=== PATIENT | male | born 1970 | race American Indian/Alaskan Native ===

== ENCOUNTER 2019-04-23 20:54 | Emergency (ER) | payer MEDICAID ==
[~2019-04-23] VITALS: Ht 170.2 cm; Wt 67.6 kg
[2019-04-23 21:08] VITALS: Ht 170.2 cm; Wt 67.6 kg
[2019-04-23 21:58] LABS: BASOPHIL % 0.5 % (0-2); PLATELET COUNT 302 x10^3mcL (130-400)
[2019-04-23 22:07] LABS: CALCIUM 9.6 mg/dL (8.5-10.1); CARBON DIOXIDE 33.2 mmol/L (21-32); CHLORIDE SERUM 99 mmol/L (98-107); CREATININE SERUM 0.8 mg/dL (0.7-1.3); GFR1 > 60 mL/min; GLUCOSE SERUM 136 mg/dL (74-106); POTASSIUM SERUM 3.2 mmol/L (3.5-5.1); SODIUM SERUM 141 mmol/L (136-145)
[2019-04-23 22:11] LABS: ALBUMIN 4.4 g/dL (3.4-5.0); ALKALINE PHOSPHATASE 88 U/L (46-116); ALT/SGPT 19 U/L (16-63); AST/SGOT 10 U/L (15-37); BILIRUBIN TOTAL 0.49 mg/dL (0.20-1.00); LIPASE 74 IU/L (73-393)
[2019-04-23 22:14] LABS: TOTAL PROTEIN, SERUM 8.4 g/dL (6.4-8.2)
[2019-04-24 01:56] VITALS: BP 118/77
== END 2019-04-24 01:56 | disposition home or self-care (01) ==
LOC: ED 20:54
DX: R11.2 Nausea with vomiting, unspecified (principal); K21.9 Gastro-esophageal reflux disease without esophagitis; Z98.890 Other specified postprocedural states; Z88.6 Allergy status to analgesic agent
CPT/HCPCS: G0480; J2405; J7030; Q0162

== ENCOUNTER 2019-04-28 12:29 | Emergency (ER) | payer MEDICAID ==
[~2019-04-28] VITALS: Ht 170.2 cm; Wt 70.8 kg
[2019-04-28 12:38] VITALS: Ht 170.2 cm; Wt 70.8 kg
[2019-04-28 13:28] LABS: BASOPHIL % 0.6 % (0-2); PLATELET COUNT 226 x10^3mcL (130-400)
[2019-04-28 13:36] LABS: RED CELL DISTRIBUTION WIDTH 16.1 % (11.5-14.5)
[2019-04-28 13:37] LABS: CALCIUM 8.5 mg/dL (8.5-10.1); CARBON DIOXIDE 29.8 mmol/L (21-32); CHLORIDE SERUM 107 mmol/L (98-107); CREATININE SERUM 0.9 mg/dL (0.7-1.3); GFR1 > 60 mL/min; GLUCOSE SERUM 101 mg/dL (74-106); POTASSIUM SERUM 3.8 mmol/L (3.5-5.1); SODIUM SERUM 144 mmol/L (136-145)
[2019-04-28 13:41] LABS: ALBUMIN 4.1 g/dL (3.4-5.0); ALKALINE PHOSPHATASE 73 U/L (46-116); ALT/SGPT 23 U/L (16-63); AST/SGOT 20 U/L (15-37); BILIRUBIN TOTAL 0.5 mg/dL (0.20-1.00); LIPASE 184 IU/L (73-393); TOTAL PROTEIN, SERUM 7.4 g/dL (6.4-8.2)
[2019-04-28 20:00] VITALS: BP 126/84
== END 2019-04-28 20:00 | disposition home or self-care (01) ==
LOC: ED 12:29
PROVIDERS: Emergency Medicine
DX: K57.30 Diverticulosis of large intestine without perforation or abscess without bleeding (principal); K21.9 Gastro-esophageal reflux disease without esophagitis; M19.90 Unspecified osteoarthritis, unspecified site; Z88.6 Allergy status to analgesic agent
CPT/HCPCS: C9113; J2405; J2765; J7030

== ENCOUNTER 2019-05-03 21:24 | Inpatient (IN) | payer MEDICAID, BC ==
[~2019-05-03] VITALS: Ht 170.2 cm; Wt 66.7 kg
[2019-05-03 21:36] VITALS: Ht 170.2 cm; Wt 66.7 kg
[2019-05-03 23:01] LABS: BASOPHIL % 1.1 % (0-2); PLATELET COUNT 228 x10^3mcL (130-400); RED CELL DISTRIBUTION WIDTH 15.4 % (11.5-14.5)
[2019-05-03 23:08] LABS: CALCIUM 8.5 mg/dL (8.5-10.1); CARBON DIOXIDE 26.2 mmol/L (21-32); CHLORIDE SERUM 105 mmol/L (98-107); CREATININE SERUM 0.8 mg/dL (0.7-1.3); GFR1 > 60 mL/min; GLUCOSE SERUM 91 mg/dL (74-106); POTASSIUM SERUM 3.8 mmol/L (3.5-5.1); SODIUM SERUM 141 mmol/L (136-145)
[2019-05-03 23:12] LABS: ALBUMIN 4.1 g/dL (3.4-5.0); ALKALINE PHOSPHATASE 67 U/L (46-116); ALT/SGPT 18 U/L (16-63); AST/SGOT 16 U/L (15-37); BILIRUBIN TOTAL 0.7 mg/dL (0.20-1.00); LIPASE 157 IU/L (73-393); TOTAL PROTEIN, SERUM 7.3 g/dL (6.4-8.2)
--- NOTE | 2019-05-03 23:31 | NUR ---
PATIENT SEEN WITH COMPLAINT OF NAUSEA/VOMITIG X 1 WEEK. SEEN BY MD. SALINE LOCK INSERTED. PATIENT MEDICATED.
--- NOTE | 2019-05-04 00:38 | NUR ---
PT GIVEN URINAL TO PROVIDE URINE SAMPLE AT THIS TIME.
--- NOTE | 2019-05-04 00:50 | NUR ---
PATIENT IS RESTING. NO VOMITING SEEN SINCE IN THE ED. REPORT WAS GIVEN TO YAMILET. PATIENT TRANSPORTED TO ROOM 203
--- NOTE | 2019-05-04 02:00 | NUR ---
PATIENT TRANSPORTED TO THE ROOM. ( TRANSFER DELAY DUE TO EMERGENCY).
--- NOTE | 2019-05-04 02:07 | NUR ---
PATIENT ARRIVED FROM ED VIA WHEELCHAIR ACCOMPANIED BY ED STAFF. PATIENT IS AMBULATORY WITH AN EVEN AND STEADY GAIT. A/OX4. ABLE TO MAKE NEEDS KNOWN. BREATHING EVEN AND UNLABORED ON ROOM AIR. NO SOB OR RESP DISTRESS NOTED. MED SURG PATIENT. DENIES CHEST PAIN/PRESSURE. NO C/O PAIN AT THIS TIME. DENIES N/V, CULVER, AND DIZZINESS. IV TO THE RAC INFUSING NS WELL. PATENT AND INTACT. NO REDNESS OR SWELLING NOTED. RADIAL AND PEDAL PULSES ARE PALPABLE BILATERALLY. NO EDEMA NOTED. PATIENT REPORTS POOR APPETITE PRIOR TO ADMISSION. NEEDS URINE FOR UA AND PATIENT IS AWARE. URINAL AT BEDSIDE. PATIENT DENIES CIGARETTE SMOKING BUT REPORTS CHRONIC USE OF MARIJUANA. PATIENT STATES HE QUIT DRINKING. ORIENTED PATIENT TO RROM, BED CONTROLS, AND CALL LIGHT SYSTEM. COMFORT AND SAFETY MEASURES IN PLACE. BED IS LOCKED AND IN THE LOWEST POSITION. SIDE RAILS UP X2. CALL LIGHT IS WITHIN REACH. PATIENT IS NPO AND IS AWARE. WILL CONTINUE TO MONITOR.
--- NOTE | 2019-05-04 02:07 | NUR ---
PATIENT ARRIVED FROM ED VIA WHEELCHAIR ACCOMPANIED BY ED STAFF. PATIENT IS AMBULATORY WITH AN EVEN AND STEADY GAIT. A/OX4. ABLE TO MAKE NEEDS KNOWN. BREATHING EVEN AND UNLABORED ON ROOM AIR. NO SOB OR RESP DISTRESS NOTED. MED SURG PATIENT. DENIES CHEST PAIN/PRESSURE. NO C/O PAIN AT THIS TIME. DENIES N/V, CULVER, AND DIZZINESS. IV TO THE RAC INFUSING NS WELL. PATENT AND INTACT. NO REDNESS OR SWELLING NOTED. RADIAL AND PEDAL PULSES ARE PALPABLE BILATERALLY. NO EDEMA NOTED. PATIENT REPORTS POOR APPETITE POOR TO ADMISSION. NEEDS URINE FOR UA AND PATIENT IS AWARE. URINAL AT BEDSIDE. PATIENT DENIES CIGARETTE SMOKING BUT REPORTS CHRONIC USE OF MARIJUANA. PATIENT STATES HE QUIT DRINKING. ORIENTED PATIENT TO RROM, BED CONTROLS, AND CALL LIGHT SYSTEM. COMFORT AND SAFETY MEASURES IN PLACE. BED IS LOCKED AND IN THE LOWEST POSITION. SIDE RAILS UP X2. CALL LIGHT IS WITHIN REACH. PATIENT IS NPO AND IS AWARE. WILL CONTINUE TO MONITOR.
[2019-05-04 02:29] VITALS: BP 111/57
[2019-05-04 04:54] LABS: UA SPECIFIC GRAVITY 1.025 (1.005-1.035); microscopic required? YES; urine erythrocyte NEGATIVE (NEGATIVE)
[2019-05-04 05:11] LABS: AMPHETAMINE QUAL UR NONE DETECTED (See below)
[2019-05-04 05:44] VITALS: BP 100/70
[2019-05-04 05:56] LABS: BASOPHIL % 1.4 % (0-2); PLATELET COUNT 220 x10^3mcL (130-400)
--- NOTE | 2019-05-04 06:08 | NUR ---
AWAKE THROUGH MOST OF THE NIGHT. AMBIEN AND BENEDRYL WAS NOT EFFECTIVE. NO DISTRESS NOTED. BREATHING EVEN AND UNLABORED ON ROOM AIR. NO SOB OR RESP DISTRESS NOTED. NO C/O PAIN, ONLY ABD DISCOMFORT. IV TO THE RAC INFUSING WELL. PATENT AND INTACT. NO REDNESS OR SWELLING NOTED. ABD INCISION X3 W/ DERMABOND. NO BM. SAFETY MEASURES IN PLACE. CALL LIGHT IN PLACE. WILL ENDORSE CARE TO DAY SHIFT RN.
--- NOTE | 2019-05-04 06:14 | NUR ---
RESTED IN LONG INTERVALS THROUGHOUT THE NIGHT. NO DISTRESS NOTED. BREATHING EVEN AND UNLABORED ON ROOM AIR. NO SOB NOTED. DENIES CHEST PAIN. NO C/O PAIN THROUGHOUT THE NIGHT. DENIES NAUSEA. IV TO THE RAC INFUSING WELL. PATENT AND INTACT. NO REDNESS OR SWELLING NOTED. NPO. SAFETY MEASURES IN PLACE. CALL LIGHT IS WTIHIN REACH. WILL ENDORSE CARE TO DAY SHIFT RN.
[2019-05-04 06:18] LABS: CALCIUM 8.2 mg/dL (8.5-10.1); CARBON DIOXIDE 26.1 mmol/L (21-32); CHLORIDE SERUM 106 mmol/L (98-107); CREATININE SERUM 0.6 mg/dL (0.7-1.3); GFR1 > 60 mL/min; GLUCOSE SERUM 86 mg/dL (74-106); POTASSIUM SERUM 3.6 mmol/L (3.5-5.1); SODIUM SERUM 140 mmol/L (136-145)
[2019-05-04 06:55] LABS: RED CELL DISTRIBUTION WIDTH 15.8 % (11.5-14.5)
--- NOTE | 2019-05-04 07:00 | NUR ---
RECIEVED PT RESTING IN BED WITH NO C/O PAIN OR DISTRESS. A/O X4 WITH NO C/O CULVER OR DISSINESS. PT REPORTS NO ABD PAIN OR VOMITING AT THIS TIME. NS RUNNING IN RAC 20G, INTACT AND PATENT WITH NO REDNESS OR INFLAMMATION NOTED. SAFETY PRECAUTIONS IN PLACE, CALL LIGHT WITHIN REACH, WILL MONITOR.
[2019-05-04 08:30] VITALS: BP 103/75
--- NOTE | 2019-05-04 13:16 | NUR ---
PT DIEST CHANGED TO REGULAR TO SEE IF HE CAN TOLERATE AND HE WAS NOT ABLE TO TOLERATE EATING REGULAR DIET. PT REPORTS VOMITING AFTER EATING LUNCH, DR MAXWELL NOTIFIED. WILL MONITOR PT, STABLE AT THIS TIME.
--- NOTE | 2019-05-04 15:16 | NUR ---
ZOFRAN GIVEN FOR C/O N/V, WILL REASSESS.
[2019-05-04 16:50] VITALS: BP 101/71
--- NOTE | 2019-05-04 18:45 | NUR ---
PT STABLE, RESTING AT THIS TIME WITH NO C/O PAIN OR DISTRESS. TOLERATED ALL CARES WELL. VS WNL. NO SOB NOTED. IV INTACT AND PATENT WITH NO REDNESS OR INFLAMMATION NOTED. NS RUNNING AT 100ML/HR. SAFETY PRECAUTIONS IN PLACE, CALL LIGHT WITHIN REACH, WILL ENDORSE TO NIGHT NURSE.
--- NOTE | 2019-05-04 19:25 | NUR ---
RECEIVED PT RESTING IN BEDSIDE CHAIR, NO ACUTE DISTRESS NOTED. PT AOX4, DENIES CULVER/DIZZINESS, MEDSURG PT, DENIES CP. PULSES PALPABLE BILAT, DENIES NUMBNESS/TINGLING IN FEET. RESP EVEN AND UNLABORED ON RA, DENIES SOB. PT REPORTS LESSING NAUSEA, DID NOT VOMIT AFTER DINNER. PT HAS LONG HX OF THC USE, DRUG CESSATION EDUCATION PROVIDED. PT REPORTS SHOWERING HELPS DECREASE THE NAUSEA EFFECTS, REPORTING IT FEELS LIKE HE IS "COMFORTED IN THE WOMB", EDUCATED PT IN REGARDS TO SAFE SHOWERING PROTOCOLS, IV SITE MUST BE COVERED TO REDUCE THE RISK OF INFECTION. PT VERBALIZES UNDERSTANDING, PT VOIDS FREELY BRP, DENIES DYSURIA. AMBULATORY. SKIN INTACT. DENIES PAIN AT THIS TIME. IV SITE TO THE RAC PATENT, NO REDNESS, SWELLING OR PAIN NOTED. ALL COMFORT AND SAFETY MEASURES PROVIDED FOR, CALL LIGHT WITHIN REACH, BED IN LOWEST POSITION, WILL CONTINUE TO MONITOR.
[2019-05-04 21:17] VITALS: BP 100/65
--- NOTE | 2019-05-05 05:05 | NUR ---
PT RESTED IN INTERVALS DURING SHIFT, NO ACUTE CHANGES OCCURRING OVERNIGHT. PT SHOWERED 3 TIMES DURING SHIFT WHICH HE REPORTS HELP WITH THE NAUSEA SYMPTOMS CAUSES MY MARIJUANA ENDUCED HYPEREMESIS. PT REPORTS NAUSEA YET NO VOMITING LAST NIGHT. PT REPORTS HE SHOULD BE TOLERANT OF FULL LIQUID DIET THIS MORNING, IV SITE REMAINS PATENT TO RAC, NO REDNESS, SWELLING OR PAIN NOTED. ALL COMFORT AND SAFETY MEASURES PROVIDED FOR, CALL LIGHT WITHIN REACH, BED INLOWEST POSITION, WILL CONTINUE TO MONITOR.
[2019-05-05 05:09] VITALS: BP 107/72
[2019-05-05 06:37] LABS: CALCIUM 8.1 mg/dL (8.5-10.1); CARBON DIOXIDE 24.3 mmol/L (21-32); CHLORIDE SERUM 107 mmol/L (98-107); CREATININE SERUM 0.7 mg/dL (0.7-1.3); GFR1 > 60 mL/min; GLUCOSE SERUM 84 mg/dL (74-106); MAGNESIUM 1.9 mg/dL (1.8-2.4); PHOSPHOROUS 3.5 mg/dL (2.5-4.9); POTASSIUM SERUM 3.9 mmol/L (3.5-5.1); SODIUM SERUM 141 mmol/L (136-145)
[2019-05-05 06:45] LABS: BASOPHIL % 1.3 % (0-2); PLATELET COUNT 228 x10^3mcL (130-400)
[2019-05-05 07:04] LABS: RED CELL DISTRIBUTION WIDTH 15.3 % (11.5-14.5)
--- NOTE | 2019-05-05 08:00 | NUR ---
SHIFT ASSESSMENT DONE. PATIENT A/A/OX4; CLEAER SPEECH. NO RESP DISTRESS ON ROOM AIR, DENIED PAIN NOW. FINISHED 80% OF FULL LIQUID DIET BREASKFAST. C/O MILD NAUSEA. BUT NO VOMITING. STATED HAD SMALL HARD BM YESTERDAY. AMBULATORY. IVHL'D, INTACT. AMBULATED ON GAIT. CALL LIGHT IN REACH.
[2019-05-05 09:35] VITALS: BP 98/64
--- NOTE | 2019-05-05 10:39 | NUR ---
STATED NAUSEA RELIEVED BY PROTONIX 40MG GIVEN BY IVP. COLACE 100 MG PO GIVEN FOR CONSTIPATION.
--- NOTE | 2019-05-05 11:48 | NUR ---
C/O NAUSEA AND ABD DISCOMFORT. PHENERGAN IVP AND REGLAN 5MG PO GIVEN. CONTINUE MONITOR.
[2019-05-05 13:11] VITALS: BP 98/64
--- NOTE | 2019-05-05 14:28 | NUR ---
C/O PHENERGAN AND REGLAN WERE NOT EFFECTIVE. PATIENT ANXIETY AND WAS MARIJUANA USER. DR. MAXWELL NOTIFED. NEW ORDER OF ANTIVAN 1MG PO GIVEN.
[2019-05-05] MEDS ORDERED: PROTONIX20 MG PO (16:19)
[2019-05-05] MEDS ORDERED: ZOFRAN8 MG PO (16:22)
[2019-05-05 17:05] VITALS: BP 95/66
--- NOTE | 2019-05-05 17:10 | NUR ---
PATIENT WAS CALM AND ANXIETY RELIEVED AFTER ATIVAN 1MG PO. TOOK A SHOWER. HAD BM X1 THIS SHIFT. D/C TO HOME PER ORDER. INSTRUCTION GIVEN. IV D/C'D. OVER NEEDLE CATHETER INTACT. CONDITION STABLE.
== END 2019-05-05 17:14 | disposition home or self-care (01) | DRG 918 ==
LOC: ED 21:24 → MU 05-04 00:16
PROVIDERS: Emergency Medicine; ADMIT Internal Medicine
DX: T40.7X1A Poisoning by cannabis (derivatives), accidental (unintentional), initial encounter (principal); M19.90 Unspecified osteoarthritis, unspecified site; K21.9 Gastro-esophageal reflux disease without esophagitis; F17.210 Nicotine dependence, cigarettes, uncomplicated; K52.9 Noninfective gastroenteritis and colitis, unspecified; Y92.89 Other specified places as the place of occurrence of the external cause; Z88.8 Allergy status to other drugs, medicaments and biological substances
CPT/HCPCS: 83880; C9113; G0378; J1630; J2060; J2405; J2550; J3490; J7030; J8597